=== PATIENT | male | born 1965 | race Two or more races ===

== ENCOUNTER 2024-03-12 21:40 | Inpatient (IN) | payer MEDICAID ==
[~2024-03-12] VITALS: Ht 172.7 cm; Wt 72.6 kg
[2024-03-12 21:40] VITALS: BP 99/65; PULSE 18; PULSE 78; RESP 18; TEMP 98
[2024-03-12] MEDS ORDERED: CLONIDINE 0.1MG TABLET PO PRN (23:15)
[2024-03-12] MEDS ORDERED: ACETAMINOPHEN 325MG TABLET PO PRN (23:15)
[2024-03-12] MEDS ORDERED: ONDANSETRON HCL 4MG/2ML INJ IV PRN (23:15)
[2024-03-12] MEDS ORDERED: DOCUSATE SODIUM 100MG CAPSULE PO PRN (23:15)
[2024-03-12] MEDS ORDERED: MAGNESIUM/ALUMINUM HYDROXIDE/SIMETHICONE 30ML UDC PO PRN (23:15)
[2024-03-12] MEDS ORDERED: GUAIFENESIN-DM 200MG-20MG/10ML UDC PO PRN (23:15)
[2024-03-12] MEDS ORDERED: NITROGLYCERIN 0.4MG TABLET SL SL PRN (23:15)
[2024-03-13] MEDS: AMPICILLIN 2,000 MG in SODIUM CHLORIDE 0.9% 100 ML IV SCH (01:30)
[2024-03-13 07:25] LABS: CHLORIDE 104 mEq/L (98-107); POTASSIUM 5.2 mEq/L (3.5-5.1); SODIUM 133 mEq/L (136-145)
[2024-03-13 07:27] LABS: CALCIUM 9.1 mg/dL (8.7-10.4); CARBON DIOXIDE 21 mEq/L (21-32)
[2024-03-13 07:32] LABS: CREATININE 1.5 mg/dL (0.6-1.3); GLUCOSE 81 mg/dL (70-105); UREA NITROGEN BLOOD 27 mg/dL (9-23)
[2024-03-13 07:33] LABS: ALANINE AMINOTRANSFERASE 44 IU/L (10-49)
[2024-03-13 07:34] LABS: ALBUMIN 3.5 g/dL (3.2-4.8); ASPARTATE AMINOTRANSFERASE 33 IU/L (<34); BILIRUBIN TOTAL 0.3 mg/dL (0.1-1.0); PREALBUMIN 13.4 mg/dl (10.0-40.0); PROTEIN TOTAL 8.1 g/dL (6.0-8.3)
[2024-03-13 07:40] LABS: BASOPHILS % 0.5 % (0.0-2.0); EOSINOPHILS % 0.6 % (0.0-5.0); HEMATOCRIT. 27.3 % (42.0-52.0); HEMOGLOBIN. 8.9 g/dL (14.0-18.0); LYMPHOCYTES % 43.3 % (20.0-50.0); MEAN CORPUSCULAR HEMOGLOBIN 29.3 pg (28.0-32.0); MEAN CORPUSCULAR HGB CONC 32.5 g/dL (31.0-37.0); MEAN CORPUSCULAR VOLUME 90.1 fL (80.0-94.0); MEAN PLATELET VOLUME 7.4 fl (7.4-10.4); MONOCYTES % 8.5 % (2.0-8.0); NEUTROPHILS % 47.1 % (40.0-76.0); PLATELET 528 x1000/uL (130-400); RED BLOOD CELL COUNT 3.03 mill/uL (4.7-6.1); RED CELL DISTRIBUTION WIDTH 17.9 % (11.6-14.6); WHITE BLOOD COUNT 3.6 x1000/uL (4.5-11.0)
[2024-03-13] MEDS: MAGNESIUM GLUCONATE 500MG TABLET PO SCH (08:29)
[2024-03-13] MEDS: SULFAMETHOXAZOLE/TRIMETHOPRIM 800/160MG TABLET PO SCH (08:29)
[2024-03-13] MEDS: PANTOPRAZOLE SODIUM 40 MG/VIAL IV SCH (08:29)
[2024-03-13] MEDS: ASCORBIC ACID 500 MG TABLET PO SCH (08:29)
[2024-03-13] MEDS ORDERED: PANTOPRAZOLE SODIUM 40 MG/VIAL IV SCH (09:00)
[2024-03-13] MEDS: BICTEGRAVIR 50MG/EMTRICITABINE 200MG/TENOFOVIR ALA 25MG PO SCH (10:37)
[2024-03-13 20:00] VITALS: BP 90/51; PULSE 60; TEMP 98.2
[2024-03-14 07:03] LABS: BASOPHILS % 0.6 % (0.0-2.0); EOSINOPHILS % 0.4 % (0.0-5.0); HEMATOCRIT. 24.7 % (42.0-52.0); HEMOGLOBIN. 7.9 g/dL (14.0-18.0); LYMPHOCYTES % 36.1 % (20.0-50.0); MEAN CORPUSCULAR HGB CONC 31.9 g/dL (31.0-37.0); MEAN CORPUSCULAR VOLUME 90.8 fL (80.0-94.0); MEAN PLATELET VOLUME 7.5 fl (7.4-10.4); MONOCYTES % 9.4 % (2.0-8.0); NEUTROPHILS % 53.5 % (40.0-76.0); PLATELET 580 x1000/uL (130-400); RED BLOOD CELL COUNT 2.73 mill/uL (4.7-6.1); RED CELL DISTRIBUTION WIDTH 18.3 % (11.6-14.6)
[2024-03-14 07:10] LABS: CHLORIDE 105 mEq/L (98-107); POTASSIUM 5.1 mEq/L (3.5-5.1); SODIUM 134 mEq/L (136-145)
[2024-03-14 07:11] LABS: CALCIUM 9.1 mg/dL (8.7-10.4); CARBON DIOXIDE 24 mEq/L (21-32)
[2024-03-14 07:15] LABS: IRON 28 ug/dL (65-175)
[2024-03-14 07:16] LABS: CREATININE 1.5 mg/dL (0.6-1.3); GLUCOSE 86 mg/dL (70-105); UREA NITROGEN BLOOD 33 mg/dL (9-23)
[2024-03-14 07:18] LABS: ALANINE AMINOTRANSFERASE 45 IU/L (10-49); ALBUMIN 3.7 g/dL (3.2-4.8); ASPARTATE AMINOTRANSFERASE 30 IU/L (<34); BILIRUBIN TOTAL 0.2 mg/dL (0.1-1.0); PROTEIN TOTAL 8.5 g/dL (6.0-8.3); TOTAL IRON BINDING CAPACITY 297 ug/dl (250-425)
[2024-03-14 07:21] LABS: FOLIC ACID (FOLATE) SERUM 5.66 ng/mL (>5.38)
[2024-03-14 07:22] LABS: THYROID STIMULATING HORMONE 2.15 uIU/mL (0.55-4.78); VITAMIN B12 SERUM 558 pg/mL (211-911)
[2024-03-14 07:33] LABS: FERRITIN 358 ng/mL (22-322)
[2024-03-14 08:00] VITALS: BP 102/65; PULSE 69; RESP 18; TEMP 96.7
[2024-03-14] MEDS: SODIUM POLYSTYRENE SULFONATE 15 G/60 ML BOT PO NR (11:19)
[2024-03-14] MEDS: FERROUS SULFATE 325MG TABLET PO SCH (13:03)
[2024-03-14 20:00] VITALS: BP 127/70; PULSE 62; RESP 18; TEMP 97.8
[2024-03-15 07:39] LABS: BASOPHILS % 0.6 % (0.0-2.0); EOSINOPHILS % 0.5 % (0.0-5.0); HEMATOCRIT. 25.7 % (42.0-52.0); HEMOGLOBIN. 8.1 g/dL (14.0-18.0); LYMPHOCYTES % 47.4 % (20.0-50.0); MEAN CORPUSCULAR HEMOGLOBIN 28.7 pg (28.0-32.0); MEAN CORPUSCULAR HGB CONC 31.4 g/dL (31.0-37.0); MEAN CORPUSCULAR VOLUME 91.3 fL (80.0-94.0); MEAN PLATELET VOLUME 7.5 fl (7.4-10.4); MONOCYTES % 10.9 % (2.0-8.0); NEUTROPHILS % 40.6 % (40.0-76.0); PLATELET 536 x1000/uL (130-400); RED BLOOD CELL COUNT 2.82 mill/uL (4.7-6.1); RED CELL DISTRIBUTION WIDTH 17.8 % (11.6-14.6); WHITE BLOOD COUNT 3.8 x1000/uL (4.5-11.0)
[2024-03-15 07:41] LABS: POTASSIUM 4.8 mEq/L (3.5-5.1)
[2024-03-15 07:47] LABS: CREATININE 1.6 mg/dL (0.6-1.3)
[2024-03-15 08:00] VITALS: BP 104/70; PULSE 56; RESP 18; TEMP 97
[2024-03-15] MEDS: ASCORBIC ACID 500 MG TABLET PO SCH (09:47)
[2024-03-15] MEDS: ZINC SULFATE 220 MG ( 50 ) CAPSULE PO ONE (12:00)
[2024-03-15] MEDS ORDERED: GUAIFENESIN 200MG/10ML SUGAR FREE UDC PO PRN (14:00)
[2024-03-15] MEDS: ZINC SULFATE 220 MG ( 50 ) CAPSULE PO SCH (14:30)
[2024-03-15 20:00] VITALS: BP 124/60; PULSE 77; RESP 20; TEMP 98
[2024-03-15] MEDS: MAGNESIUM GLUCONATE 500MG TABLET PO SCH (20:38)
[2024-03-16 08:00] VITALS: BP 120/83; PULSE 65; RESP 20; TEMP 97.6
[2024-03-16 08:43] LABS: BASOPHILS % 0.8 % (0.0-2.0); EOSINOPHILS % 0.3 % (0.0-5.0); HEMOGLOBIN. 8.8 g/dL (14.0-18.0); LYMPHOCYTES % 34.7 % (20.0-50.0); MEAN CORPUSCULAR HEMOGLOBIN 29.3 pg (28.0-32.0); MEAN CORPUSCULAR HGB CONC 31.6 g/dL (31.0-37.0); MEAN CORPUSCULAR VOLUME 92.6 fL (80.0-94.0); MEAN PLATELET VOLUME 7.9 fl (7.4-10.4); MONOCYTES % 8.1 % (2.0-8.0); NEUTROPHILS % 56.1 % (40.0-76.0); PLATELET 555 x1000/uL (130-400); RED BLOOD CELL COUNT 3.02 mill/uL (4.7-6.1); RED CELL DISTRIBUTION WIDTH 18.1 % (11.6-14.6); WHITE BLOOD COUNT 4.3 x1000/uL (4.5-11.0)
[2024-03-16 08:48] LABS: CALCIUM 9.2 mg/dL (8.7-10.4)
[2024-03-16 08:52] LABS: CREATININE 1.7 mg/dL (0.6-1.3)
[2024-03-16] MEDS: SODIUM CHLORIDE 0.45% 1,000 ML IV SCH (12:00)
[2024-03-16 20:00] VITALS: BP 108/61; PULSE 68; RESP 18; TEMP 98.1
[2024-03-17 06:32] LABS: BASOPHILS % 1.7 % (0.0-2.0); EOSINOPHILS % 0.5 % (0.0-5.0); HEMATOCRIT. 25.6 % (42.0-52.0); HEMOGLOBIN. 8.2 g/dL (14.0-18.0); LYMPHOCYTES % 46.9 % (20.0-50.0); MEAN CORPUSCULAR HEMOGLOBIN 29.3 pg (28.0-32.0); MEAN CORPUSCULAR HGB CONC 32.2 g/dL (31.0-37.0); MEAN CORPUSCULAR VOLUME 90.9 fL (80.0-94.0); MEAN PLATELET VOLUME 7.8 fl (7.4-10.4); MONOCYTES % 10.1 % (2.0-8.0); NEUTROPHILS % 40.8 % (40.0-76.0); PLATELET 486 x1000/uL (130-400); RED BLOOD CELL COUNT 2.82 mill/uL (4.7-6.1); RED CELL DISTRIBUTION WIDTH 17.9 % (11.6-14.6); WHITE BLOOD COUNT 3.9 x1000/uL (4.5-11.0)
[2024-03-17 06:51] LABS: POTASSIUM 4.6 mEq/L (3.5-5.1)
[2024-03-17 06:52] LABS: CALCIUM 9.2 mg/dL (8.7-10.4)
[2024-03-17 06:56] LABS: CREATININE 1.4 mg/dL (0.6-1.3)
[2024-03-17 08:00] VITALS: BP 98/66; PULSE 87; RESP 16; TEMP 98.1
[2024-03-17] MEDS: ERGOCALCIFEROL 50000UNITS CAPSULE PO SCH (14:32)
[2024-03-17 20:00] VITALS: BP 104/65; PULSE 93; RESP 18; TEMP 100.4
[2024-03-17] MEDS: ACETAMINOPHEN 325MG TABLET PO PRN (20:26)
[2024-03-18 08:00] VITALS: BP 114/74; PULSE 82; RESP 17; TEMP 97.8
[2024-03-18] MEDS: BICTEGRAVIR 50MG/EMTRICITABINE 200MG/TENOFOVIR ALA 25MG PO SCH (09:43)
[2024-03-18 20:00] VITALS: BP 105/63; PULSE 91; RESP 17; TEMP 99.6
[2024-03-19 07:27] LABS: BASOPHILS % 0.6 % (0.0-2.0); EOSINOPHILS % 0.3 % (0.0-5.0); HEMATOCRIT. 28.2 % (42.0-52.0); HEMOGLOBIN. 8.9 g/dL (14.0-18.0); MEAN CORPUSCULAR HEMOGLOBIN 29.1 pg (28.0-32.0); MEAN CORPUSCULAR HGB CONC 31.4 g/dL (31.0-37.0); MEAN CORPUSCULAR VOLUME 92.6 fL (80.0-94.0); MEAN PLATELET VOLUME 7.6 fl (7.4-10.4); NEUTROPHILS % 52.1 % (40.0-76.0); PLATELET 480 x1000/uL (130-400); RED BLOOD CELL COUNT 3.05 mill/uL (4.7-6.1); RED CELL DISTRIBUTION WIDTH 18.3 % (11.6-14.6); WHITE BLOOD COUNT 5.1 x1000/uL (4.5-11.0)
[2024-03-19 07:28] LABS: CALCIUM 9.1 mg/dL (8.7-10.4)
[2024-03-19 07:33] LABS: CREATININE 1.4 mg/dL (0.6-1.3)
[2024-03-19 08:00] VITALS: BP 115/76; PULSE 84; RESP 20; TEMP 97.5
[2024-03-19] MEDS: SODIUM ZIRCONIUM CYCLOSILICATE 10GM/PACKET PO NR (11:23)
[2024-03-19 20:00] VITALS: BP 109/66; PULSE 87; RESP 18; TEMP 97
[2024-03-20 07:10] LABS: POTASSIUM 4.9 mEq/L (3.5-5.1)
[2024-03-20 07:11] LABS: CALCIUM 9.6 mg/dL (8.7-10.4)
[2024-03-20 07:14] LABS: CREATININE 1.5 mg/dL (0.6-1.3)
[2024-03-20 08:00] VITALS: BP 107/70; PULSE 94; RESP 20; TEMP 98.1
[2024-03-20 11:01] VITALS: BP 107/80; PULSE 94; TEMP 98.1; O2SAT 100
== END 2024-03-20 12:15 | disposition home health service (06) | DRG 58 ==
PROVIDERS: ADMIT Physical Medicine & Rehabilitation Spinal Cord Injury Medicine; ATTEND Internal Medicine
DX: G72.81 Critical illness myopathy (principal); N17.0 Acute kidney failure with tubular necrosis; A41.9 Sepsis, unspecified organism; B20 Human immunodeficiency virus [HIV] disease; D63.8 Anemia in other chronic diseases classified elsewhere; E87.1 Hypo-osmolality and hyponatremia; N13.6 Pyonephrosis; G62.9 Polyneuropathy, unspecified; E87.5 Hyperkalemia; T83.021A Displacement of indwelling urethral catheter, initial encounter; I11.0 Hypertensive heart disease with heart failure; Y83.8 Other surgical procedures as the cause of abnormal reaction of the patient, or of later complication, without mention of misadventure at the time of the procedure; I50.9 Heart failure, unspecified; E55.9 Vitamin D deficiency, unspecified; H54.62 Unqualified visual loss, left eye, normal vision right eye; R26.2 Difficulty in walking, not elsewhere classified; R53.81 Other malaise; Y92.89 Other specified places as the place of occurrence of the external cause; Z91.81 History of falling; Z93.6 Other artificial openings of urinary tract status
CPT/HCPCS: 36415; 80048; 80053; 82306; 82607; 82728; 82746; 83036; 83540; 83550; 84134; 84443; 85025; 93970; 97110; 97112; 97116; 97162; 97166; 97530; 97535; C1893; J0290; J2470; J7050

== ENCOUNTER 2024-04-21 19:12 | Inpatient (IN) | payer MEDICAID ==
[~2024-04-21] VITALS: Ht 175.3 cm; Wt 65.8 kg
[2024-04-21 20:34] LABS: CHLORIDE 103 mEq/L (98-107); POTASSIUM 5.2 mEq/L (3.5-5.1); SODIUM 130 mEq/L (136-145)
[2024-04-21 20:35] LABS: BASOPHILS % 0.6 % (0.0-2.0); CALCIUM 9.3 mg/dL (8.7-10.4); CARBON DIOXIDE 22 mEq/L (21-32); EOSINOPHILS % 0.1 % (0.0-5.0); HEMOGLOBIN. 8.7 g/dL (14.0-18.0); LYMPHOCYTES % 21.1 % (20.0-50.0); MEAN CORPUSCULAR HEMOGLOBIN 29.6 pg (28.0-32.0); MEAN CORPUSCULAR HGB CONC 32.3 g/dL (31.0-37.0); MEAN CORPUSCULAR VOLUME 91.4 fL (80.0-94.0); MEAN PLATELET VOLUME 8.3 fl (7.4-10.4); MONOCYTES % 13.5 % (2.0-8.0); NEUTROPHILS % 64.7 % (40.0-76.0); PLATELET 488 x1000/uL (130-400); RED BLOOD CELL COUNT 2.96 mill/uL (4.7-6.1); RED CELL DISTRIBUTION WIDTH 17.1 % (11.6-14.6)
[2024-04-21 20:40] LABS: GLUCOSE 86 mg/dL (70-105); UREA NITROGEN BLOOD 25 mg/dL (9-23)
[2024-04-21 20:42] LABS: ALANINE AMINOTRANSFERASE 14 IU/L (10-49); ALBUMIN 4.1 g/dL (3.2-4.8); ASPARTATE AMINOTRANSFERASE 18 IU/L (<34); BILIRUBIN TOTAL 0.4 mg/dL (0.1-1.0); CREATININE 2.1 mg/dL (0.6-1.3)
[2024-04-21 20:43] LABS: PROTEIN TOTAL 9.8 g/dL (6.0-8.3)
[2024-04-21] MEDS: VANCOMYCIN 1G PREMIX 200 ML IV SCH (23:10)
[2024-04-21 23:33] VITALS: PULSE 105; RESP 22; O2SAT 94
[2024-04-21] MEDS: ALBUTEROL (0.083%) 2.5MG/3ML NEB HHN SCH (23:33)
[2024-04-21] MEDS ORDERED: CLONIDINE 0.1MG TABLET PO PRN (23:45)
[2024-04-21] MEDS ORDERED: DOCUSATE SODIUM 100MG CAPSULE PO PRN (23:45)
[2024-04-21] MEDS ORDERED: GUAIFENESIN 200MG/10ML SUGAR FREE UDC PO PRN (23:45)
[2024-04-21] MEDS ORDERED: ONDANSETRON HCL 4MG/2ML INJ IV PRN (23:45)
[2024-04-21] MEDS ORDERED: IPRATROPIUM/ALBUTEROL 0.5-3(2.5)MG/3ML NEB HHN PRN (23:45)
[2024-04-21] MEDS ORDERED: LORAZEPAM 0.5MG TABLET PO PRN (23:45)
[2024-04-22] VITALS (11 sets, daily range): BP systolic 86–116; BP diastolic 51–90; PULSE 65–124; RESP 13–28; TEMP 36.3918–37.89192; O2SAT 80–100
[2024-04-22] MEDS: CALCIUM GLUCONATE 100MG/ML 10ML VIAL IV ONE (00:41)
[2024-04-22] MEDS: DEXTROSE 50% WATER 50ML SYRINGE IV ONE (00:46)
[2024-04-22] MEDS: INSULIN REGULAR (HUMULIN R) 1000UNITS/10ML VIAL IV ONE (00:51)
[2024-04-22] MEDS: DEXTROSE 50% WATER 50ML SYRINGE IV NR (00:52)
[2024-04-22] MEDS: ACETAMINOPHEN 325MG TABLET PO PRN (01:19)
[2024-04-22] MEDS: SODIUM CHLORIDE 0.9% 500 ML IV SCH (03:29)
[2024-04-22 05:43] LABS: TROPONIN I HIGH SENSITIVITY 8 ng/L (3.0-53)
[2024-04-22 05:44] LABS: PHOSPHORUS 3.6 mg/dL (2.5-4.9)
[2024-04-22 05:53] LABS: BASOPHILS % 0.2 % (0.0-2.0); EOSINOPHILS % 0.1 % (0.0-5.0); HEMATOCRIT. 25.5 % (42.0-52.0); HEMOGLOBIN. 8.3 g/dL (14.0-18.0); LYMPHOCYTES % 14.7 % (20.0-50.0); MEAN CORPUSCULAR HEMOGLOBIN 29.6 pg (28.0-32.0); MEAN CORPUSCULAR HGB CONC 32.4 g/dL (31.0-37.0); MEAN CORPUSCULAR VOLUME 91.4 fL (80.0-94.0); MEAN PLATELET VOLUME 8.1 fl (7.4-10.4); PLATELET 457 x1000/uL (130-400); RED CELL DISTRIBUTION WIDTH 16.9 % (11.6-14.6); WHITE BLOOD COUNT 9.9 x1000/uL (4.5-11.0)
[2024-04-22 06:03] LABS: HEPATITIS B SURFACE ANTIGEN NEGATIVE (Negative)
[2024-04-22] MEDS: PIPERACILLIN/TAZO 3.375G/50ML 50 ML IV SCH (06:14)
[2024-04-22 06:23] LABS: HEPATITIS A AB IGM NEGATIVE (Negative)
[2024-04-22 06:24] LABS: HEPATITIS B CORE AB IGM NEGATIVE (Negative)
[2024-04-22 06:25] LABS: HEPATITIS C AB NON REACTIVE (Neg) (Negative)
[2024-04-22 06:59] LABS: IRON 27 ug/dL (65-175)
[2024-04-22 07:02] LABS: TOTAL IRON BINDING CAPACITY 412 ug/dl (250-425)
[2024-04-22 07:29] LABS: HEPATITIS B SURFACE AB 19.9 mIU/mL (<10)
[2024-04-22 10:40] LABS: CARBON DIOXIDE 20 mEq/L (21-32); CHLORIDE 102 mEq/L (98-107); SODIUM 129 mEq/L (136-145)
[2024-04-22 10:42] LABS: CALCIUM 9.4 mg/dL (8.7-10.4)
[2024-04-22 10:46] LABS: CREATININE 1.9 mg/dL (0.6-1.3); GLUCOSE 101 mg/dL (70-105)
[2024-04-22 10:47] LABS: UREA NITROGEN BLOOD 20 mg/dL (9-23)
[2024-04-22 10:49] LABS: PHOSPHORUS 3.8 mg/dL (2.5-4.9)
[2024-04-22] MEDS ORDERED: IPRATROPIUM/ALBUTEROL 0.5-3(2.5)MG/3ML NEB HHN PRN (11:00)
[2024-04-22 11:10] LABS: BG BASE EXCESS -1.9 mmol/L (-2.0-3.0); BG CARBOXYHEMOGLOBIN 0.3 % (0.5-1.5); BG DEOXYHEMOGLOBIN 0.3 % (0.0-5.0); BG HCO3 ACT 20.6 mmol/L (21.0-28.0); BG METHEMOGLOBIN 0.3 % (0.5-1.5); BG OXYGEN SATURATION 99.7 % (94.0-98.0); BG OXYHEMOGLOBIN 99.1 % (94.0-98.0); BG PCO2 27.4 mmHg (35.0-48.0); BG PH 7.495 (7.350-7.450); BG PO2 496.5 mmHg (83.0-108.0); BG SAMPLE SITE RIGHT RADIAL; BG TOTAL HEMOGLOBIN 8.9 g/dL (13.5-17.5); BG VENT MODE MASK - NRB
[2024-04-22] MEDS: IPRATROPIUM/ALBUTEROL 0.5-3(2.5)MG/3ML NEB HHN SCH (11:39)
[2024-04-22] MEDS: AZITHROMYCIN 500 MG TABLET PO SCH (12:00)
[2024-04-22 13:36] LABS: CREATINE KINASE MB FRACTION < 0.5 ng/mL (0.5-3.6); TROPONIN I HIGH SENSITIVITY 6 ng/L (3.0-53)
[2024-04-22 13:37] LABS: CREATINE KINASE 34 IU/L (46-171)
[2024-04-22 18:45] LABS: CREATINE KINASE MB FRACTION < 0.5 ng/mL (0.5-3.6); TROPONIN I HIGH SENSITIVITY 4 ng/L (3.0-53)
[2024-04-22 18:47] LABS: CREATINE KINASE 33 IU/L (46-171)
[2024-04-22] MEDS: VANCOMYCIN 750MG/150ML (BAXTER) IV SCH (21:56)
[2024-04-23] VITALS (26 sets, daily range): BP systolic 80–126; BP diastolic 54–79; PULSE 81–119; RESP 14–27; TEMP 36.44736–36.89184; O2SAT 94–100
[2024-04-23] MEDS: ACETAMINOPHEN 325MG TABLET PO PRN (00:03)
[2024-04-23] MEDS: HYDROCODONE/ACETAMINOPHEN 5/325MG TABLET PO PRN (02:28)
[2024-04-23 06:35] LABS: HEMOGLOBIN 7.4 g/dL (14.0-18.0); MEAN CORPUSCULAR HEMOGLOBIN 29.7 pg (28.0-32.0); MEAN CORPUSCULAR HGB CONC 32.1 g/dL (31.0-37.0); MEAN CORPUSCULAR VOLUME 92.5 fL (80.0-94.0); PLATELET 419 x1000/uL (130-400); RED BLOOD CELL COUNT 2.49 mill/uL (4.7-6.1); RED CELL DISTRIBUTION WIDTH 16.5 % (11.6-14.6); WHITE BLOOD COUNT 12.1 x1000/uL (4.5-11.0)
[2024-04-23 06:57] LABS: CALCIUM 8.9 mg/dL (8.7-10.4); CARBON DIOXIDE 18 mEq/L (21-32); CHLORIDE 103 mEq/L (98-107); POTASSIUM 5.3 mEq/L (3.5-5.1); SODIUM 127 mEq/L (136-145)
[2024-04-23 07:01] LABS: CREATININE 1.9 mg/dL (0.6-1.3); GLUCOSE 102 mg/dL (70-105)
[2024-04-23 07:02] LABS: ALBUMIN 3.5 g/dL (3.2-4.8)
[2024-04-23 07:03] LABS: UREA NITROGEN BLOOD 21 mg/dL (9-23)
[2024-04-23 07:05] LABS: PHOSPHORUS 4.1 mg/dL (2.5-4.9)
[2024-04-23 07:29] LABS: PREALBUMIN < 5.0 mg/dl (10.0-40.0)
[2024-04-23] MEDS ORDERED: NALOXONE HCL 0.4MG/ML VIAL IV PRN (07:45)
[2024-04-23] MEDS ORDERED: LIDOCAINE HCL/EPINEPHRINE 1%-EPI 1:100,000 20ML VIAL INFIL NR (08:00)
[2024-04-23 09:07] LABS: % CD 3 POS. LYMPHOCYTES 92.9 % (57.5-86.2); % CD 4 POS. LYMPHOCYTES 9.9 % (30.8-58.5); % CD 8 POS. LYMPH 81.4 % (12.0-35.5); ABSOLUTE CD 3 1672 /uL (622-2402); ABSOLUTE CD 4 HELPER 178 /uL (359-1519); ABSOLUTE CD 8 SUPPRESSOR 1465 /uL (109-897); ABSOLUTE LYMPHOCYTES 1.8 x10E3/uL (0.7-3.1); ABSOLUTE MONOCYTES 1.6 x10E3/uL (0.1-0.9); ABSOLUTE NEUTROPHILS 7.9 x10E3/uL (1.4-7.0); BASOPHILS 0 % (Not Estab.); CD4/CD8 RATIO 0.12 (0.92-3.72); EOSINOPHILS 0 % (Not Estab.); HEMATOCRIT 26.4 % (37.5-51.0); HEMOGLOBIN 8.1 g/dL (13.0-17.7); IMMATURE GRANULOCYTES 1 % (Not Estab.); IMMATURE GRANULOCYTES ABSOLUTE 0.1 x10E3/uL (0.0-0.1); LYMPHOCYTES 16 % (Not Estab.); MEAN CORPUSCULAR HEMOGLOBIN 28.5 pg (26.6-33.0); MEAN CORPUSCULAR HGB CONC. 30.7 g/dL (31.5-35.7); MEAN CORPUSCULAR VOLUME 93 fL (79-97); MONOCYTES 14 % (Not Estab.); NEUTROPHILS 69 % (Not Estab.); PLATELETS 507 x10E3/uL (150-450); RBC 2.84 x10E6/uL (4.14-5.80); RED CELL DISTRIBUTION WIDTH 14.2 % (11.6-15.4); WBC 11.3 x10E3/uL (3.4-10.8)
[2024-04-23] MEDS: ATOVAQUONE 750 MG/5 ML UDC PO SCH (09:59)
[2024-04-23 10:24] LABS: INR 1.3; PROTHROMBIN TIME 13.9 sec (9.6-11.0)
[2024-04-23] MEDS ORDERED: IOHEXOL-300 100 ML BOTTLE ONE (11:08)
[2024-04-23] MEDS ORDERED: LIDOCAINE HCL 1% 10 MG/ML 10ML VIAL ONE (11:08)
[2024-04-23] MEDS ORDERED: FENTANYL CITRATE/PF 50MCG/ML 2ML VIAL ONE (11:30)
[2024-04-23] MEDS: FENTANYL CITRATE/PF 50MCG/ML 2ML VIAL IV ONE ×2 (11:35→12:30)
[2024-04-24] VITALS (14 sets, daily range): BP systolic 75–116; BP diastolic 53–88; PULSE 91–122; RESP 13–27; TEMP 36.22512–38.892; O2SAT 94–100
[2024-04-24 05:18] LABS: POTASSIUM 4.4 mEq/L (3.5-5.1)
[2024-04-24 05:20] LABS: CALCIUM 8.7 mg/dL (8.7-10.4)
[2024-04-24 05:24] LABS: CREATININE 1.6 mg/dL (0.6-1.3)
[2024-04-24] MEDS: SODIUM CHLORIDE 0.9% 1,000 ML IV SCH (08:57)
[2024-04-24 11:44] LABS: BASOPHILS % 0.1 % (0.0-2.0); EOSINOPHILS % 0.2 % (0.0-5.0); HEMATOCRIT. 27.4 % (42.0-52.0); HEMOGLOBIN. 8.6 g/dL (14.0-18.0); LYMPHOCYTES % 11.7 % (20.0-50.0); MEAN CORPUSCULAR HEMOGLOBIN 29.2 pg (28.0-32.0); MEAN CORPUSCULAR HGB CONC 31.3 g/dL (31.0-37.0); MEAN CORPUSCULAR VOLUME 93.4 fL (80.0-94.0); MEAN PLATELET VOLUME 7.2 fl (7.4-10.4); MONOCYTES % 10.3 % (2.0-8.0); NEUTROPHILS % 77.7 % (40.0-76.0); PLATELET 416 x1000/uL (130-400); RED BLOOD CELL COUNT 2.94 mill/uL (4.7-6.1); RED CELL DISTRIBUTION WIDTH 16.6 % (11.6-14.6); WHITE BLOOD COUNT 8.5 x1000/uL (4.5-11.0)
[2024-04-24 12:00] LABS: POTASSIUM 4.4 mEq/L (3.5-5.1)
[2024-04-24 12:06] LABS: CREATININE 1.6 mg/dL (0.6-1.3)
[2024-04-24] MEDS: FERROUS SULFATE 325MG TABLET PO SCH (17:58)
[2024-04-24] MEDS: VANCOMYCIN 1GM/200ML PMX (BAXTER) IV SCH (20:22)
[2024-04-25] VITALS (11 sets, daily range): BP systolic 90–109; BP diastolic 61–79; PULSE 88–118; RESP 16–20; TEMP 36.114–38.0586; O2SAT 97–100
[2024-04-25 08:08] LABS: SODIUM URINE RANDOM 57 mEq/L
[2024-04-25 08:27] LABS: CHLORIDE 104 mEq/L (98-107); POTASSIUM 4.4 mEq/L (3.5-5.1); SODIUM 130 mEq/L (136-145)
[2024-04-25 08:28] LABS: CARBON DIOXIDE 21 mEq/L (21-32)
[2024-04-25 08:29] LABS: CALCIUM 8.9 mg/dL (8.7-10.4)
[2024-04-25 08:30] LABS: BASOPHILS % 0.6 % (0.0-2.0); EOSINOPHILS % 0.3 % (0.0-5.0); HEMATOCRIT. 23.8 % (42.0-52.0); HEMOGLOBIN. 7.5 g/dL (14.0-18.0); LYMPHOCYTES % 15.7 % (20.0-50.0); MEAN CORPUSCULAR HEMOGLOBIN 28.8 pg (28.0-32.0); MEAN CORPUSCULAR HGB CONC 31.4 g/dL (31.0-37.0); MEAN CORPUSCULAR VOLUME 91.5 fL (80.0-94.0); MEAN PLATELET VOLUME 8.1 fl (7.4-10.4); MONOCYTES % 14.9 % (2.0-8.0); NEUTROPHILS % 68.5 % (40.0-76.0); PLATELET 373 x1000/uL (130-400); RED BLOOD CELL COUNT 2.59 mill/uL (4.7-6.1); RED CELL DISTRIBUTION WIDTH 16.1 % (11.6-14.6); WHITE BLOOD COUNT 7.5 x1000/uL (4.5-11.0)
[2024-04-25 08:33] LABS: GLUCOSE 94 mg/dL (70-105); UREA NITROGEN BLOOD 16 mg/dL (9-23)
[2024-04-25 12:49] LABS: OSMOLALITY URINE 548 mOsm/kg (500-850)
[2024-04-25] MEDS: FAMOTIDINE 20MG TABLET PO SCH (20:18)
[2024-04-26] VITALS (12 sets, daily range): BP systolic 90–109; BP diastolic 48–81; PULSE 76–113; RESP 15–21; TEMP 36.114–37.7808; O2SAT 98–100
[2024-04-26 06:21] LABS: CHLORIDE 106 mEq/L (98-107); POTASSIUM 4.3 mEq/L (3.5-5.1); SODIUM 134 mEq/L (136-145)
[2024-04-26 06:22] LABS: CALCIUM 8.7 mg/dL (8.7-10.4); CARBON DIOXIDE 21 mEq/L (21-32)
[2024-04-26 06:27] LABS: CREATININE 1.1 mg/dL (0.6-1.3); GLUCOSE 99 mg/dL (70-105); UREA NITROGEN BLOOD 15 mg/dL (9-23)
[2024-04-26 06:29] LABS: PHOSPHORUS 3.2 mg/dL (2.5-4.9)
[2024-04-26 06:42] LABS: HEMATOCRIT. 21.7 % (42.0-52.0); HEMOGLOBIN. 7.1 g/dL (14.0-18.0); MEAN CORPUSCULAR HEMOGLOBIN 29.3 pg (28.0-32.0); MEAN CORPUSCULAR HGB CONC 32.4 g/dL (31.0-37.0); MEAN CORPUSCULAR VOLUME 90.4 fL (80.0-94.0); MEAN PLATELET VOLUME 7.5 fl (7.4-10.4); PLATELET 381 x1000/uL (130-400); RED BLOOD CELL COUNT 2.41 mill/uL (4.7-6.1); RED CELL DISTRIBUTION WIDTH 16.3 % (11.6-14.6); WHITE BLOOD COUNT 7.6 x1000/uL (4.5-11.0)
[2024-04-26 07:16] LABS: DIFFERENTIAL COMMENT 1
[2024-04-26] MEDS: VANCOMYCIN 750MG PREMIX 150 ML IV SCH (10:27)
[2024-04-26 11:38] LABS: CLARITY URINE CLEAR (CLEAR); COLOR URINE ORANGE (YELLOW); GLUCOSE URINE NEGATIVE (NEGATIVE); KETONES URINE NEGATIVE (NEGATIVE); LEUKOCYTE ESTERASE URINE 2+ (NEGATIVE); NITRITE URINE NEGATIVE (NEGATIVE); OCCULT BLOOD URINE 3+ (NEGATIVE); PH URINE 6.5 (4.5-8.0); PROTEIN URINE 1+ (NEGATIVE); SPECIFIC GRAVITY URINE 1.012 (1.005-1.030); UROBILINOGEN URINE 0.2 E.U./dL (0.2-1.0)
[2024-04-26 11:48] LABS: SQUAMOUS EPITHELIAL CELL URINE NONE SEEN /lpf (RARE/1+)
[2024-04-26 11:49] LABS: BACTERIA URINE TRACE; RBC URINE TNTC /hpf (0-2)
[2024-04-26 14:32] LABS: PLATELET ESTIMATE NORMAL
[2024-04-27] VITALS (8 sets, daily range): BP systolic 98–119; BP diastolic 72–88; PULSE 71–102; RESP 16–19; TEMP 36.28068–36.50292; O2SAT 94–100
[2024-04-28] VITALS (7 sets, daily range): BP systolic 116–126; BP diastolic 78–91; PULSE 64–82; RESP 17–20; TEMP 36.16956–37.00296; O2SAT 97–100
[2024-04-28] MEDS: PIPERACILLIN/TAZO 3.375G/50ML 50 ML IV SCH (00:15)
[2024-04-28 05:47] LABS: CALCIUM 8.8 mg/dL (8.7-10.4); CHLORIDE 112 mEq/L (98-107); POTASSIUM 4.4 mEq/L (3.5-5.1); SODIUM 138 mEq/L (136-145)
[2024-04-28 05:48] LABS: CARBON DIOXIDE 21 mEq/L (21-32)
[2024-04-28 05:53] LABS: GLUCOSE 80 mg/dL (70-105); UREA NITROGEN BLOOD 13 mg/dL (9-23)
[2024-04-28] MEDS ORDERED: SULF1TAB47 PO (14:06)
[2024-04-28] MEDS ORDERED: FERR-63 PO (14:06)
[2024-04-28] MEDS ORDERED: FAMO20TA8 PO (14:06)
[2024-04-28] MEDS: MAGNESIUM 2 G PREMIX 50 ML IV NR (17:29)
== END 2024-04-28 22:00 | disposition home health service (06) | DRG 890 ==
LOC: ER 19:12 → EDBEDREQ 21:48 → EDBEDREQSVC 21:59 → EDBEDREQTM 21:59 → 7EST 04-22 01:46 → 5EST 04-22 09:36
PROVIDERS: ADMIT Internal Medicine; ATTEND Internal Medicine
PROC: 5A09357 Assistance with Respiratory Ventilation, Less than 24 Consecutive Hours, Continuous Positive Airway Pressure (ICD-10-PCS; principal; 2024-04-22)
PROC: 0T9430Z Drainage of Left Kidney Pelvis with Drainage Device, Percutaneous Approach (ICD-10-PCS; 2024-04-23)
PROC: 0T9330Z Drainage of Right Kidney Pelvis with Drainage Device, Percutaneous Approach (ICD-10-PCS; 2024-04-23)
PROC: BT131ZZ Fluoroscopy of Bilateral Kidneys using Low Osmolar Contrast (ICD-10-PCS; 2024-04-23)
DX: A41.9 Sepsis, unspecified organism (principal); B20 Human immunodeficiency virus [HIV] disease; J96.01 Acute respiratory failure with hypoxia; J18.9 Pneumonia, unspecified organism; E46 Unspecified protein-calorie malnutrition; E87.3 Alkalosis; I13.0 Hypertensive heart and chronic kidney disease with heart failure and stage 1 through stage 4 chronic kidney disease, or unspecified chronic kidney disease; N17.9 Acute kidney failure, unspecified; E87.1 Hypo-osmolality and hyponatremia; I50.9 Heart failure, unspecified; C85.90 Non-Hodgkin lymphoma, unspecified, unspecified site; L02.211 Cutaneous abscess of abdominal wall; L02.416 Cutaneous abscess of left lower limb; Z66 Do not resuscitate; N32.0 Bladder-neck obstruction; N13.6 Pyonephrosis; E87.5 Hyperkalemia; D64.9 Anemia, unspecified; E78.5 Hyperlipidemia, unspecified; N18.9 Chronic kidney disease, unspecified; L03.116 Cellulitis of left lower limb; N30.20 Other chronic cystitis without hematuria; K59.00 Constipation, unspecified; K80.20 Calculus of gallbladder without cholecystitis without obstruction; N32.89 Other specified disorders of bladder; S30.1XXA Contusion of abdominal wall, initial encounter; S81.011A Laceration without foreign body, right knee, initial encounter; N40.1 Benign prostatic hyperplasia with lower urinary tract symptoms; N13.8 Other obstructive and reflux uropathy; X58.XXXA Exposure to other specified factors, initial encounter; Z87.01 Personal history of pneumonia (recurrent); Z68.21 Body mass index [BMI] 21.0-21.9, adult; Z87.440 Personal history of urinary (tract) infections; Y93.89 Activity, other specified; Y92.89 Other specified places as the place of occurrence of the external cause; Y99.8 Other external cause status
CPT/HCPCS: 36415; 36600; 50432; 71045; 74176; 76700; 80048; 80053; 80202; 81003; 82040; 82270; 82375; 82550; 82553; 82728; 82805; 82962; 83540; 83550; 83605; 83735; 83880; 83930; 83935; 84100; 84134; 84145; 84300; 84484; 85025; 85027; 85379; 86359; 86360; 86705; 86706; 86709; 86850; 86900; 87340; 87491; 93005; 93970; 94640; 94660; 99152; 99153; 99285; C1725; C1729; C1760; C1769; J0610; J1815; J2543; J3010; J3370; J3475; J3490; J7030; Q9967; G0500